=== PATIENT | male | born 1955 | race Caucasian/White ===

== ENCOUNTER 2016-11-07 09:52 | Emergency (ER) | payer OTHER ==
[~2016-11-07] VITALS: Ht 160 cm; Wt 72.0 kg
[~2016-11-07 09:52] MED LIST: BENA10TA48 PO
[2016-11-07 09:58] VITALS: Ht 160 cm; Wt 72.0 kg
[2016-11-07] MEDS ORDERED: SOD CHLORIDE 0.9% 1,000 ML IV STA ×2 (10:26→13:07)
[2016-11-07 11:25] LABS: BASOPHILS % 0.8 % (0.0-2.0); EOSINOPHILS # 0.1 10^3/ul (0.0-0.5); EOSINOPHILS % 1.6 % (0.0-7.0); HEMATOCRIT 41.6 % (42.0-52.0); HEMOGLOBIN 13.8 g/dl (14.0-18.0); LYMPHOCYTES # 1.1 10^3/ul (0.8-2.9); LYMPHOCYTES % 21.2 % (15.0-51.0); MEAN CORPUSCULAR HEMOGLOBIN 30.1 pg (29.0-33.0); MEAN CORPUSCULAR HGB CONC 33.2 g/dl (32.0-37.0); MEAN CORPUSCULAR VOLUME 90.8 fl (82.0-101.0); MEAN PLATELET VOLUME 9.9 fl (7.4-10.4); MONOCYTE # 0.4 10^3/ul (0.3-0.9); MONOCYTES % 8.7 % (0.0-11.0); NEUTROPHILS % 67.5 % (39.0-77.0); PLATELET COUNT 237 10^3/UL (140-415); RED BLOOD COUNT 4.58 10^6/ul (4.70-6.10)
[2016-11-07 11:43] LABS: INR 0.91; PARTIAL THROMBOPLASTIN TIME 28.9 Sec (25.0-35.0); PROTIME 12.3 Sec (12.2-14.2)
[2016-11-07 11:47] LABS: ALANINE AMINOTRANSFERASE 28 IU/L (13-69); ALBUMIN 3.8 g/dl (3.3-4.9); ALBUMIN/GLOBULIN RATIO 1.18; ALKALINE PHOSPHATASE 60 IU/L (42-121); AMYLASE 127 U/L (11-123); ANION GAP 14 (8-16); ASPARTATE AMINO TRANSFERASE 19 IU/L (15-46); BILIRUBIN,INDIRECT 0.3 mg/dl (0-1.1); BILIRUBIN,TOTAL 0.3 mg/dl (0.2-1.3); BLOOD UREA NITROGEN 22 mg/dl (7-20); CALCIUM 9.4 mg/dl (8.4-10.2); CARBON DIOXIDE 28 mmol/L (21-31); CHLORIDE 101 mmol/L (97-110); CREATININE 0.91 mg/dl (0.61-1.24); GLUCOSE 84 mg/dl (70-220); POTASSIUM 4.4 mmol/L (3.5-5.1); SODIUM 139 mmol/L (135-144)
[2016-11-07 12:01] LABS: TROPONIN-I < 0.012 ng/ml (0.00-0.12)
[2016-11-07 12:06] LABS: ADD UMIC NO; UR ASCORBIC ACID NEGATIVE (NEGATIVE); UR BILIRUBIN (Dip) NEGATIVE (NEGATIVE); UR BLOOD (Dip) NEGATIVE (NEGATIVE); UR CLARITY CLEAR (CLEAR); UR COLOR STRAW (YELLOW); UR GLUCOSE (Dip) NEGATIVE (NEGATIVE); UR KETONES (Dip) NEGATIVE (NEGATIVE); UR LEUKOCYTE ESTERASE (Dip) NEGATIVE Leu/ul (NEGATIVE); UR NITRITE (Dip) NEGATIVE (NEGATIVE); UR SPECIFIC GRAVITY (Dip) 1.009 (1.003-1.030); UR TOTAL PROTEIN (Dip) NEGATIVE (NEGATIVE); UR UROBILINOGEN (Dip) NEGATIVE (NEGATIVE)
[2016-11-07] MEDS ORDERED: IOHEXOL 300MG/ML 150 ML BTL ONE (12:16)
[2016-11-07] MEDS ORDERED: SOD CHLORIDE 0.9% 100 ML ONE (12:16)
[2016-11-07] MEDS ORDERED: morphine 4 MG/ML VIAL IV STA (13:07)
[2016-11-07] MEDS ORDERED: ONDANSETRON 4 MG INJ IV STA (13:07)
--- NOTE | 2016-11-07 14:28 | RADRPT ---
PROCEDURE: US Scrotum. CLINICAL INDICATION: Left scrotal pain and swelling. TECHNIQUE: Multiple sonographic images of the scrotal region were obtained utilizing a linear arra y transducer with grayscale and color-flow and pulsed Doppler imaging. The images were reviewed on a high-resolution PACS workstation. COMPARISON: No prior studies are available for comparison. FINDINGS: The right testis measures 4.2 x 2.6 x 3.1 cm. The left testis measures 4.0 x 2.3 x 3.0 cm. There is no intratesticular mass. There are small benign bilateral epididymal cysts measuring up to 0.8 cm on the right and 0.4 cm on the left. Both epididymi are enlarged and hyperemic consistent with bilateral epididymitis. There is normal flow to both testes demonstrated with color Doppler and pulsed Doppler sonography. There is a small right hydrocele and moderate left hydrocele. There is no varicocele. The scrotal wall is unremarkable. IMPRESSION: 1. Bilateral epididymitis. No evidence of torsion or orchitis. 2. Otherwise normal scrotal ultrasound. RPTAT: QQ .Chandler Acosta MD, MD Date Time Electronically viewed and signed by .Chandler Acosta MD, MD on 11/07/2016 14:27 .R/
--- NOTE | 2016-11-07 14:59 | RADRPT ---
PROCEDURE: CT abdomen and pelvis with contrast. CLINICAL INDICATION: Abdominal pain TECHNIQUE: CT scan of the abdomen and pelvis without contrast was performed on a 64-slice [facility] utilizing axial imaging from the lung bases through the pubis symphysis. The patient was scanned after the uneventful intravenous administration of 90 cc of Omnipaque-300. Sagittal and coronal re formatted images were made. CTDI vol 6.87 mGy and DLP 423.48 mGy-cm One of the following 3 dose reduction techniques were used during this CT examination: automated exp osure control; adjustment of the mA and /or kV according to patient size; or use of iterative recons truction technique. COMPARISON: CT abdomen pelvis dated 02/04/2014 FINDINGS: CT abdomen: The lung bases are remarkable for bilateral emphysematous changes and bibasilar scarring. The visua lized heart size is normal. No pericardial or pleural effusion is present. A moderate hiatal hernia is noted. Mild diffuse fatty infiltration of the liver is present without focal lesions. Normal sized liver is present. The visualized spleen, pancreas, gallbladder, and bi lateral adrenal glands are normal. The bilateral kidneys are nonobstructive. Mild bilateral perinep hric inflow ration is suggested and correlate with pyelonephritis. No evidence for hydroureter nephr osis or nephroureterolithiasis is present. Marked distension of the urinary bladder is noted. The visualized bowel is nonobstructive. No evidence for diverticulosis or diverticulitis is present . The appendix is visualized and measures 7 mm at its proximal portion and 5 mm at the tip. No def inite periappendiceal inflammation is noted and recommend close clinical and imaging follow-up. The previously described 1.2 cm density in the right lower quadrant of the abdomen just deep to the abdo evgeny wall is no longer present. The visualized aorta is normal. No evidence for aneurysmal dilatation is present. No evidence for retroperitoneal lymphadenopathy is present. No evidence for ascites or pneumoperitoneum is noted. CT pelvis: Marked distension of the urinary bladder is present. Moderate prostatic enlargement measuring 4.3 c m AP by 4.5 cm in transverse dimension is noted. No mass, lymphadenopathy, or free fluid is seen. There is no evidence of free air. The surrounding osseous structures are remarkable for mild degenerative spondylosis of the imaged sp ine. IMPRESSION: 1. Moderate hiatal hernia. 2. Mild bilateral perinephric edema and correlate with pyelonephritis. 3. Borderline distension of the appendix without periappendiceal inflammation. Recommend close cli nical and imaging follow-up. 4. No evidence for pneumoperitoneum or ascites. 5. Moderate prostatic enlargement and correlate with PSA. A call report was made to Shanta Alegria at 11/07/2016 2:55:25 PM following the completion of the examination by the undersigned. RPTAT: HDC .Pretty Stahl MD, MD Date Time Electronically viewed and signed by .Pretty Stahl MD, MD on 11/07/2016 14:58 .C/
--- NOTE | 2016-11-07 15:09 | ERD ---
ER Documentation Chief Complaint Date/Time DATE: 11/07/16 TIME: 14:59 Chief Complaint ap x 4 days, frequent urination HPI This is a 61-year-old male with a remote history of hepatitis several years prior to arrival. The patient indicates that he presented to the emergency department today complaining of abdominal pain for the past 4 days. Indicates that the pain is most prominent in the left lower quadrant. He woke this morning with significant pain in the left lower quadrant and left testicle. He states he has had no fevers or shaking or chills. He denies any abnormal urethral discharge. He is currently sexually active with one partner being his . He denies any STD exposure. He is experiencing nocturia with no frequency urgency or dysuria. The pain is a sharp shooting pain that he experiences in the left lower quadrant with no alleviating or exacerbating factors. He denies any hemoptysis hematemesis or melanotic stools ROS All systems reviewed and are negative except as per history of present illness. Medications Home Meds Reported Medications Benazepril Hcl* (Benazepril Hcl*) 10 Mg Tablet, 10 MG PO DAILY Y for HYPERTENSION, TAB 11/29/13 Allergies Allergies: Coded Allergies: No Known Drug Allergies (Verified Allergy, Unknown, 12/22/14) PMhx/Soc History of Surgery: Yes (LIVER DRAIN PLACEMENT) Anesthesia Reaction: No Hx Neurological Disorder: No Hx Respiratory Disorders: No Hx Cardiac Disorders: Yes (HTN) Hx Psychiatric Problems: No Hx Miscellaneous Medical Probl: No Hx Alcohol Use: Yes (OCCASIONAL) Hx Substance Use: No Hx Tobacco Use: No Smoking Status: Never smoker Physical Exam Vitals Vital Signs Date Time Temp Pulse Resp B/P Pulse Ox O2 Delivery O2 Flow Rate FiO2 11/07/16 09:58 98.1 80 18 130/86 99 Physical Exam Constitutional:Well-developed. Well-nourished. HEENT:Normocephalic. Atraumatic.Pupils were equal round reactive to light. Moist mucous membranes.No tonsillar exudates. Neck: No nuchal rigidity. No lymphadenopathy. No posterior cervical spine tenderness or step-offs. Respiratory: Not using accessory muscles of respiration.Lungs were clear to auscultation bilaterally. No rhonchi. No rales. No wheezing. Cardiovascular: Regular rate regular rhythm.No murmurs. No rubs were appreciated.S1, S2 normal. Distal pulses are palpable 2+ bilaterally. GI: Abdomen was soft. Left lower quadrant tenderness. No tenderness in the right lower quadrant over McBurney's point. Psoas sign negative. Obturator sign negative. Non Distended. No pulsatile abdominal masses or bruits. No rebound. No guarding. Bowel sounds were present and normal. : Tenderness in the bilateral testicles more prominent on the left than the right. No abnormal urethral discharge or rashes. Normal lie to both testicles. Cremaster reflex intact bilaterally. No evidence of Willow's gangrene Muscle skeletal: Full range of motion of both the upper and lower extremities bilaterally.Normal muscle tone.No assymetrical calf tenderness or swelling. Skin: No petechia, no purpura. No lesions on the palms or the soles of the feet. No maculopapular rash. NEURO: Patient was alert, awake, orientated x3.No facial droop. Gait observed and normal with no ataxia.Speech had regular rate and rhythm. No focal neurological deficits. Result Diagram: 11/07/16 1042 11/07/16 1042 Results 24 hrs Laboratory Tests Test 11/07/16 10:42 11/07/16 11:23 White Blood Count 5.010^3/ul Red Blood Count 4.5810^6/ul Hemoglobin 13.8g/dl Hematocrit 41.6% Mean Corpuscular Volume 90.8fl Mean Corpuscular Hemoglobin 30.1pg Mean Corpuscular Hemoglobin Concent 33.2g/dl Red Cell Distribution Width 12.0% Platelet Count 14147^3/UL Mean Platelet Volume 9.9fl Neutrophils % 67.5% Lymphocytes % 21.2% Monocytes % 8.7% Eosinophils % 1.6% Basophils % 0.8% Nucleated Red Blood Cells % 0.0/100WBC Neutrophils # (Manual) 3.410^3/ul Lymphocytes # 1.110^3/ul Monocytes # 0.410^3/ul Eosinophils # 0.110^3/ul Basophils # 0.010^3/ul Nucleated Red Blood Cells # 0.010^3/ul Prothrombin Time 12.3Sec Prothrombin Time Ratio 1.0 INR International Normalized Ratio 0.91 Activated Partial Thromboplast Time 28.9Sec Sodium Level 139mmol/L Potassium Level 4.4mmol/L Chloride Level 101mmol/L Carbon Dioxide Level 28mmol/L Anion Gap 14 Blood Urea Nitrogen 22mg/dl Creatinine 0.91mg/dl Glucose Level 84mg/dl Calcium Level 9.4mg/dl Total Bilirubin 0.3mg/dl Direct Bilirubin 0.00mg/dl Indirect Bilirubin 0.3mg/dl Aspartate Amino Transf (AST/SGOT) 19IU/L Alanine Aminotransferase (ALT/SGPT) 28IU/L Alkaline Phosphatase 60IU/L Troponin I < 0.012ng/ml Total Protein 7.0g/dl Albumin 3.8g/dl Globulin 3.20g/dl Albumin/Globulin Ratio 1.18 Amylase Level 127U/L Lipase 91U/L Urine Color STRAW Urine Clarity CLEAR Urine pH 5.0 Urine Specific [place] 1.009 Urine Ketones NEGATIVEmg/dL Urine Nitrite NEGATIVEmg/dL Urine Bilirubin NEGATIVEmg/dL Urine Urobilinogen NEGATIVEmg/dL Urine Leukocyte Esterase NEGATIVELeu/ul Urine Hemoglobin NEGATIVEmg/dL Urine Glucose NEGATIVEmg/dL Urine Total Protein NEGATIVEmg/dl Prostate Specific Antigen 1.4ng/ml Current Medications Medications (Trade) Dose Ordered Sig/Luis Route PRN Reason Start Time Stop Time Status Last Admin Dose Admin Sodium Chloride (NS) 1,000 ml @ 1,000 mls/hr Q1H STAT IV 11/07/16 10:26 11/07/16 11:25 DC 11/07/16 10:49 IV Flush 10 ml 10 ml STK-MED ONCE .ROUTE 11/07/16 12:16 11/07/16 12:17 DC 11/07/16 12:16 Sodium Chloride (NS) 100 ml @ ud STK-MED ONCE .ROUTE 11/07/16 12:16 11/07/16 12:17 DC 11/07/16 12:16 Iohexol 150 ml 150 ml STK-MED ONCE .ROUTE 11/07/16 12:16 11/07/16 12:17 DC 11/07/16 12:16 Sodium Chloride (NS) 1,000 ml @ 1,000 mls/hr Q1H STAT IV 11/07/16 13:07 11/07/16 14:06 DC Morphine Sulfate (morphine) 4 mg ONCE STAT IV 11/07/16 13:07 11/07/16 13:08 DC Ondansetron HCl (Zofran Inj) 4 mg ONCE STAT IV 11/07/16 13:07 11/07/16 13:08 DC Procedures/MDM This patient presented to the emergency department with abdominal pain and was seen and evaluated by myself. My differential diagnosis included but was not limited to abdominal aortic aneurysm, appendicitis, pancreatitis, perforated peptic ulcer, perforated viscus, Boerhaave's syndrome or visceral pain such as diverticulitis, DKA, esophagitis, hepatitis or bowel obstruction. The patient was placed on a manager cardiac, continuous pulse oximetry, and IV access was established by nursing staff. The patient received intravenous morphine and Zofran for analgesic control 12 Lead EKG tracing ordered and reviewed by myself showed: Normal sinus rhythm of 67 bpm and no arrhythmia. MO interval normal. QRS duration normal. No ST segment elevation No ST segment depression. No changes consistent with acute ischemia. I obtained a CT scan of the patient's abdomen due to the pain in left lower quadrant. There is no evidence of diverticulitis or perforation. I did speak with radiologist and she indicated that the patient's appendix was slightly enlarged but there was no periappendiceal fat stranding. The patient had no leukocytosis and no pain in the right lower quadrant. Therefore my clinical suspicion was low for appendicitis. I did indicate to the patient and his however that they will need to return to the emergency department in 8 hours for reevaluation or sooner if there is any worsening of the patient's symptoms The patient had left testicular pain. I obtain an ultrasound of the scrotum and the patient did appear to have epididymitis. This was likely result of a non-STD and therefore the patient will be sent home with ciprofloxacin for the next 14 days. He will be sent home with [place] for analgesic control. The patient was discharged home in fair condition. They were instructed to return to the emergency department at any time if there was any worsening of their condition. The patient stated they would follow up with their PCP in the next 24-48 hours to initiate a suitable medication regimen under the care of their PCP as well as to allow their PCP to monitor any drug reactions. The patient was discharged home with prescriptions after they gave informed consent to the new medication. They were also fully informed by myself on the adverse effects and adverse drug interactions in order to provide adequate safeguards to prevent possible adverse reactions to medications. Departure Diagnosis: Primary Impression: Epididymitis with no abscess Additional Impression: Abdominal pain Abdominal location: left lower quadrant Qualified Code: R10.32 - Left lower quadrant pain Condition: Fair JOHN RAMON Nov 07, 2016 15:09
[2016-11-07] MEDS ORDERED: CIPR500T4 PO (15:12)
[2016-11-07] MEDS ORDERED: HYDR-906 PO (15:12)
[2016-11-07] MEDS ORDERED: DOCU-144 PO (15:12)
[2016-11-07 15:30] VITALS: BP 137/78; PULSE 86; RESP 20; TEMP 98.3
== END 2016-11-07 15:39 | disposition home or self-care (01) ==
LOC: E/R 09:52
DX: N45.1 Epididymitis (principal); I10 Essential (primary) hypertension
CPT/HCPCS: 74177; 76870; 80053; 81003; 82150; 83690; 84153; 84154; 84484; 85025; 85610; 85730; 87086; 93005; J2270; J2405; J7030; Q9967; Z7502; Z7610

== ENCOUNTER 2016-11-15 08:39 | Emergency (ER) | payer OTHER ==
[~2016-11-15] VITALS: Wt 70.0 kg
[~2016-11-15 08:39] MED LIST changes: +CIPR500T4 PO; +DOCU-144 PO; +HYDR-906 PO
[2016-11-15] MEDS ORDERED: HYDR-906 PO (08:54)
[2016-11-15] MEDS ORDERED: CEPH-443 PO (08:54)
[2016-11-15 09:29] LABS: ADD UMIC NO; UR ASCORBIC ACID NEGATIVE (NEGATIVE); UR BILIRUBIN (Dip) NEGATIVE (NEGATIVE); UR BLOOD (Dip) NEGATIVE (NEGATIVE); UR CLARITY CLEAR (CLEAR); UR COLOR YELLOW (YELLOW); UR GLUCOSE (Dip) NEGATIVE (NEGATIVE); UR KETONES (Dip) NEGATIVE (NEGATIVE); UR LEUKOCYTE ESTERASE (Dip) NEGATIVE Leu/ul (NEGATIVE); UR NITRITE (Dip) NEGATIVE (NEGATIVE); UR SPECIFIC GRAVITY (Dip) 1.011 (1.003-1.030); UR TOTAL PROTEIN (Dip) NEGATIVE (NEGATIVE); UR UROBILINOGEN (Dip) NEGATIVE (NEGATIVE)
--- NOTE | 2016-11-15 09:49 | ERD ---
ER Documentation Chief Complaint Date/Time DATE: 11/15/16 TIME: 09:46 Chief Complaint GROIN PAIN ON ABX, NOT BETTER. ONSET 8 DAYS. DX OF EPIDIDIMYTIS. AND UTI HPI 61-year-old male recently diagnosed with epididymitis on scrotal ultrasound on November 07 presents with continuing bilateral groin pain despite taking Cipro. Patient states that he has pain in the anterior testicles, they are achy, radiates to the lower abdomen. He has been taking the antibiotics as well as [place] for pain control but he states that he has now run out of the [place]. He has not had any fevers, chills, testicular swelling. He denies nausea, vomiting. ROS All systems reviewed and are negative except as per history of present illness. Medications Home Meds Active Scripts Hydrocodone/Acetaminophen ([place] 5-325 Tablet) 1 Each Tablet, 1 TAB PO Q6H Y for PAIN, #15 TAB Prov:YURIY MENDOZA PA-C 11/15/16 Cephalexin* (Keflex*) 500 Mg Capsule, 500 MG PO TID for 10 Days, CAP Prov:YURIY MENDOZA PA-C 11/15/16 Docusate Sodium* (Colace*) 100 Mg Capsule, 100 MG PO TID, #30 CAP Prov:JOHN RAMON 11/07/16 Hydrocodone/Acetaminophen ([place] 5-325 Tablet) 1 Each Tablet, 1 TAB PO Q6H Y for PAIN, #20 TAB Prov:JOHN RAMON 11/07/16 Ciprofloxacin Hcl* (Ciprofloxacin Hcl*) 500 Mg Tablet, 500 MG PO BID for 14 Days , TAB Prov:JOHN RAMON 11/07/16 Reported Medications Benazepril Hcl* (Benazepril Hcl*) 10 Mg Tablet, 10 MG PO DAILY Y for HYPERTENSION, TAB 11/29/13 Allergies Allergies: Coded Allergies: No Known Drug Allergies (Verified Allergy, Unknown, 12/22/14) PMhx/Soc History of Surgery: Yes (LIVER DRAIN PLACEMENT) Anesthesia Reaction: No Hx Neurological Disorder: No Hx Respiratory Disorders: No Hx Cardiac Disorders: Yes (HTN) Hx Psychiatric Problems: No Hx Miscellaneous Medical Probl: No Hx Alcohol Use: Yes (OCCASIONAL) Hx Substance Use: No Hx Tobacco Use: No Smoking Status: Never smoker Physical Exam Vitals Vital Signs Date Time Temp Pulse Resp B/P Pulse Ox O2 Delivery O2 Flow Rate FiO2 11/15/16 08:42 97.8 84 21 135/91 98 Physical Exam General: Well-developed, well-nourished. The patient appears in no acute distress. HEENT: Head is normocephalic, atraumatic. No scleral icterus. Neck: Supple. Nontender. Lungs: Clear to auscultation. Normal air movement. Heart: Regular rate and rhythm. S1 and S2 are normal. No murmurs, gallops, or rubs. Abdomen: Nondistended. Exam: Scrotum: Normal Hernia: None Testes/Epid: Tender over bilateral epididymal Cremaster: Reflex intact Lymph: No inguinal lymphadenopathy Discharge: None Extremities: No clubbing or cyanosis. Moving extremities x 4. No weakness. Neurologic: Alert and oriented 3. No focal deficits. Normal speech and gait. Skin: Normal turgor. No rash or lesions. Results 24 hrs Laboratory Tests Test 11/15/16 05:52 Urine Color YELLOW Urine Clarity CLEAR Urine pH 5.0 Urine Specific [place] 1.011 Urine Ketones NEGATIVEmg/dL Urine Nitrite NEGATIVEmg/dL Urine Bilirubin NEGATIVEmg/dL Urine Urobilinogen NEGATIVEmg/dL Urine Leukocyte Esterase NEGATIVELeu/ul Urine Hemoglobin NEGATIVEmg/dL Urine Glucose NEGATIVEmg/dL Urine Total Protein NEGATIVEmg/dl Procedures/MDM ED course: Electronic medical record was reviewed, patient had an urine culture that was done at the previous visit, that shows evidence of strep, with sensitivity to penicillin. Medical decision makin-year-old male comes in with epididymitis, patient has completed antibiotics and is continuing to have pain over bilateral epididymi. Physical examination shows tenderness over the epididymitis, suspicion for testicular torsion is low. He had an extensive workup at the previous visit including labs and a CT scan and testicular ultrasound. Urine will be resent at this time, and he will be covered with Keflex, additional [place] will be written for pain control as well. He may also follow-up with urology for outpatient workup. Patient's blood pressure was elevated (>120/80) but appears stable without evidence of hypertension emergency or urgency. The patient was counseled about the risks of hypertension and urged to pursue outpatient monitoring and therapy within a week with their primary care physician. The case was reviewed and discussed with Dr. Richards who agrees with the plan of care as appropriate. Departure Diagnosis: Primary Impression: Epididymitis Condition: Good Patient Instructions: Epididymitis Additional Instructions: UROLOGY SPECIALIST: YOU HAVE A MEDICAL CONDITION WHICH REQUIRES YOU TO SEE A SPECIALIST WITHIN THE NEXT 1 WEEK. PLEASE FOLLOW UP WITH YOUR PRIMARY PHYSICIAN FOR REFFERAL.IF YOU DO NOT HAVE A PRIMARY CARE PHYSICIAN AND/OR YOU CAN NOT AFFORD TO SEE A PHYSICIAN THE FOLLOWING RESOURCES HAVE BEEN SUPPLIED TO YOU. IT IS YOUR RESPONSIBILITY TO BE SEEN BY THE SPECIALIST YURIY MENDOZA PA-C Nov 15, 2016 09:49
== END 2016-11-15 09:08 | disposition home or self-care (01) ==
LOC: FTE 08:39
DX: N45.1 Epididymitis (principal); I10 Essential (primary) hypertension
CPT/HCPCS: 81003; 87086; Z7502; 99284

== ENCOUNTER 2016-12-10 05:52 | Day surgery (SDC) | payer OTHER ==
[~2016-12-10] VITALS: Ht 170.2 cm; Wt 70.2 kg
[~2016-12-10 05:52] MED LIST changes: +CEPH-443 PO
[2016-12-10 06:55] VITALS: Ht 170.2 cm; Wt 70.2 kg
[2016-12-10 07:16] VITALS: BP 143/88; PULSE 68; RESP 16
[2016-12-10] MEDS ORDERED: FENTAnyl 50 MCG/ML VIAL ONE (08:00)
[2016-12-10] MEDS ORDERED: MIDAZOLAM 1 MG/ML 2 ML INJ ONE ×2 (08:00)
--- NOTE | 2016-12-10 08:05 | OPPN ---
Date/Time of Note Date/Time of Note DATE: 12/10/16 TIME: 08:04 Operative Report Preoperative Diagnosis Screening Postoperative Diagnosis Internal hemorrhoids No colon neoplasm is identified Operation/Procedure Performed colonoscopy Surgeon see signature line certified pharmacist assistant None Anesthesia: moderate sedation Estimated blood loss: none Transfusion Required none Specimen None Grafts/Implants none Complications none KEITH CASTRO MD Dec 10, 2016 08:05
[2016-12-10 08:30] VITALS: BP 137/97; PULSE 70; RESP 14
--- NOTE | 2016-12-10 11:32 | GILP ---
DATE OF PROCEDURE: 12/10/2016 NAME OF PROCEDURE: Colonoscopy. SURGEON: Stanley Hood MD PREOPERATIVE DIAGNOSIS: Screening colonoscopy. POSTOPERATIVE DIAGNOSES: 1. Colonoscopy all the way to the cecum. 2. Internal hemorrhoids. 3. No colon neoplasm was identified. INDICATIONS FOR PROCEDURE: The patient is a 61-year-old male patient who had previous colonoscopy and colon polyp removed. The examination was inadequate and suboptimal because of poor prep, so the patient was scheduled for repeat colonoscopy with better preparation. The procedure and possible complications were well explained to the patient. He understood and consented to the procedure. DESCRIPTION OF PROCEDURE: Under the influence of fentanyl and Versed, the colonoscope was carefully introduced in the rectum. Under direct vision, it was advanced all the way to the cecum. FINDINGS: The patient had internal hemorrhoids. No colon neoplasm was identified. He tolerated the procedure very well and there was no complication from the procedure. At the end of procedure, he was awake with stable vital signs. He was discharged home in the care of his family. IMPRESSION: 1. Colonoscopy all the way to the cecum. 2. Internal hemorrhoids. 3. No colon neoplasm was identified. PLAN: Next screening colonoscopy in 10 years. Dictated By: MD FRANCISCO Peters/[email or web address]/[email or web address] /Document#: [id number]
== END 2016-12-10 11:33 | disposition home or self-care (01) ==
LOC: GIL 05:52
PROVIDERS: ATTEND Internal Medicine Gastroenterology
DX: Z12.11 Encounter for screening for malignant neoplasm of colon (principal); K64.8 Other hemorrhoids; I10 Essential (primary) hypertension
CPT/HCPCS: 45378; J2250; J3010

== ENCOUNTER 2017-03-15 08:38 | Emergency (ER) | END 2017-03-15 10:12 | disposition home or self-care (01) ==

== ENCOUNTER 2017-03-22 07:50 | Emergency (ER) | END 2017-03-22 11:45 | disposition home or self-care (01) ==

== ENCOUNTER 2017-05-18 16:52 | Emergency (ER) | END 2017-05-18 20:18 | disposition home or self-care (01) ==

== ENCOUNTER 2018-08-21 09:00 | Emergency (ER) | payer OTHER ==
[~2018-08-21] VITALS: Ht 165.1 cm; Wt 72.7 kg
[~2018-08-21 09:00] MED LIST changes: +ALBU8.5H8 INH; +AZIT250T PO; +BENA10TA4 PO; -BENA10TA48 PO; -CEPH-443 PO; -CIPR500T4 PO; -DOCU-144 PO; +GUAI120011 PO; -HYDR-906 PO; +NAPR-985 PO; +PRED20TA PO
[2018-08-21 09:14] VITALS: BP 138/95; PULSE 85; RESP 18; Ht 165.1 cm; Wt 72.7 kg
[2018-08-21] MEDS ORDERED: predniSONE 20 MG TAB PO ONE (10:30)
[2018-08-21] MEDS ORDERED: HYDR-3029 PO (11:31)
[2018-08-21] MEDS ORDERED: HC30CR25 TOP (11:31)
[2018-08-21] MEDS ORDERED: PRED20TA PO (11:31)
--- NOTE | 2018-08-21 13:43 | ERD ---
ER Documentation Chief Complaint Chief Complaint rash on right arm after fiberglass splint was removed HPI 63-year-old male presenting with a rash to the right arm. Patient states that 2 weeks ago he was splinted for a elbow injury in outside hospital. He states that he is concerned he got fiberglass in his arm and he has had very severe itching to the right arm. He states that the itching has spread to his back and other arm. He has not been using medications on the area. He had to take off his splint because the pain and itching has intensified. Denies other medical problems. NKDA. Surgical history denies. Social history denies ROS All systems reviewed and are negative except as per history of present illness. Medications Home Meds Active Scripts Hydrocortisone* Topical (Hydrocortisone* Topical) 2.5%-28.3 Gm Cream..g., 1 APPLIC TOP BID, #1 TUB Prov:ELIDA LUCIANO PA-C 08/21/18 Prednisone* (Prednisone*) 20 Mg Tab, 40 MG PO DAILY for 4 Days, TAB Prov:ELIDA LUCIANO PA-C 08/21/18 Hydroxyzine Hcl* (Hydroxyzine Hcl*) 10 Mg Tablet, 10 MG PO Q6H PRN for ITCHING, #30 TAB Prov:ELIDA LUCIANO PA-C 08/21/18 Naproxen* (Naprosyn*) 500 Mg Tablet, 500 MG PO BID PRN for PAIN AND/OR INFLAM MATION, #30 TAB Prov:VIN KEYS PA-C 03/22/17 Guaifenesin (Mucinex) 1,200 Mg Tab.er.12h, 1200 MG PO BID for 7 Days, TAB Prov:VIN KEYS PA-C 03/22/17 Albuterol Sulfate* (Proair HFA*) 8.5 Gm Hfa.aer.ad, 2 PUFF INH Q4, #1 INHALER Prov:KAT MASTERSON PA-C 03/15/17 Prednisone* (Prednisone*) 20 Mg Tab, 60 MG PO DAILY for 5 Days, TAB Prov:KAT MASTERSON PA-C 03/15/17 Azithromycin* (Zithromax*) 250 Mg Tablet, 250 MG PO .NedPACK DIRECTED, #6 TAB TAKE 500 MG (2 TABS) THE FIRST DAY THEN 250 MG (1 TAB) DAYS 2-5 Prov:ZELALEMDORIANKAT BEAU 03/15/17 Reported Medications Benazepril Hcl* (Benazepril Hcl*) 10 Mg Tablet, 10 MG PO DAILY PRN for HYPERTENSION, TAB 11/29/13 Allergies Allergies: Coded Allergies: No Known Drug Allergies (Verified Allergy, Unknown, 12/22/14) PMhx/Soc Medical and Surgical Hx: pt denies Surgical Hx History of Surgery: No Anesthesia Reaction: No Hx Neurological Disorder: No Hx Respiratory Disorders: No Hx Cardiac Disorders: Yes (HTN) Hx Psychiatric Problems: No Hx Miscellaneous Medical Probl: Yes (hepatitis, HTN) Hx Alcohol Use: Yes (occasionally) Hx Substance Use: No Hx Tobacco Use: No Smoking Status: Never smoker FmHx Family History: No diabetes, No coronary disease, No other Physical Exam Vitals Vital Signs Date Temp Pulse Resp B/P (MAP) Pulse Ox O2 O2 Flow FiO2 Time Delivery Rate 08/21/18 98.1 85 18 138/95 98 09:14 (109) Physical Exam GENERAL: The patient is well-appearing, well-nourished, in no acute distress CHEST: Clear to auscultation bilaterally. There are no rales, wheezes or rhonchi. HEART: Regular rate and rhythm. No murmurs, clicks, rubs or gallops. EXTREMITIES: Swelling noted to the elbow. Tender to palpation over the radial head. NEUROLOGIC: Alert and oriented. Cranial nerves II through XII intact. Motor strength in all 4 extremities with 5 out of 5 strength. Sensation grossly intact. Normal speech and gait. SKIN: No maculopapular irritation noted. No vesicles. No pustules. Results 24 hrs Current Medications Medications Dose Sig/Luis Start Time Status Last (Trade) Ordered Route PRN Stop Time Admin Dose Reason Admin Prednisone 60 mg ONCE ONCE 08/21/18 DC 08/21/18 (Prednisone) PO 10:30 10:32 08/21/18 10:31 Procedures/MDM DIAGNOSTIC IMAGING REPORT Patient: ISIAH VALENCIA : 1955 Age: 63 Sex: M MR #: [id number] DOS: 08/21/18 1026 Ordering MD: STEPHANIE LUCIANO PA-C Location: [facility] Room/Bed: PROCEDURE: XR Elbow. CLINICAL INDICATION: Injury, pain TECHNIQUE: For portable views of the right elbow were performed. COMPARISON: None. FINDINGS: There is a radial head fracture with dorsal displacement of large fracture fragment. There is a 9 mm osseous density at the medial aspect of the elbow joint on frontal view without definite donor site. Multiple osseous fragments measuring up to 5 mm are seen at the posterior aspect of the elbow, suggestive of avulsion fracture, likely arising from posterior olecranon. There is no evidence of dislocation. There is elbow joint effusion. There is marked soft tissue swelling. IMPRESSION: 1. Displaced radial head fracture. 2. Displaced fracture fragments at the posterior aspect of the elbow, likely avulsion fracture arising from the olecranon. 3. Small fracture fragment at the medial aspect of the elbow, without definite donor site. 4. Elbow joint effusion. 5. Marked soft tissue swelling. ER course: Long-arm splint applied in ED. Sling given in ED. MDM: 63-year-old male presenting with rash. Patient's rash is not contributory given his extending after patient scratches and catches a new area I believe is likely associated with poison alyson. Patient sustained the injury when he fell into brush while riding a horse and is likely spread. I do not feel that there is concern for parasitic infection. I have low suspicion for fiberglass. Patient is discharged with supportive medications. Patient is told to follow-up with orthopedist given he has a fracture noted. Patient is told symptoms change or worsen to return immediately to the ER. All questions answered at discharge Departure Diagnosis: Primary Impression: Radial head fracture Additional Impression: Rash Condition: Stable Patient Instructions: Self-Care for Skin Rashes, Elbow Fracture Additional Instructions: FOLLOW UP WITH YOUR PRIMARY CARE PHYSICIAN TOMORROW.Return to this facility if you are not improving as expected. ELIDA LUCIANO PA-C Aug 21, 2018 13:43
== END 2018-08-21 12:07 | disposition home or self-care (01) ==
LOC: FTE 09:00
DX: S52.121A Displaced fracture of head of right radius, initial encounter for closed fracture (principal); R21 Rash and other nonspecific skin eruption; X58.XXXA Exposure to other specified factors, initial encounter; Y92.9 Unspecified place or not applicable
CPT/HCPCS: 29105; 73080; J7512; Z7502